=== PATIENT | female | born 1950 | race Caucasian/White ===

== ENCOUNTER → 2020-04-10 09:54 | Outpatient (CLI) | payer MEDICARE, SELFPAY ==
--- NOTE | ~2020-04-10 | MR_ITS ---
EXAMINATION: MR shoulder LT wo con DATE: 04/10/2020 11:02 INDICATION: Left shoulder pain. TECHNIQUE: Magnetic resonance imaging (MRI) of the left shoulder was performed without intravenous co ntrast. Sequences included axial PD-weighted FS FSE, coronal oblique PD-weighted FS FSE and T2-weight ed FS FSE, and sagittal oblique T2-weighted FS FSE and T1-weighted FSE. COMPARISON: None. FINDINGS: Coracoacromial arch: The acromion undersurface is curved in morphology with anterior hook (type III). There is mild acromi oclavicular joint osteoarthritis. There is mild subacromial/subdeltoid bursitis. Rotator cuff: There is mild supraspinatus and infraspinatus tendinopathy. Teres minor tendon is normal. There is mi ld subscapularis tendinopathy. No tear. There is no asymmetric fatty atrophy of the rotator cuff musc le bellies. Biceps tendon and glenoid labrum: Biceps tendon is in bicipital groove. There is moderate intra-articular biceps tendinopathy. There is a tear of the posterior superior labrum from 10:00 to 12:00 (SLAP tear). Fluid: There is a moderate-sized glenohumeral joint effusion. There is an 11 mm loose body. Bones/cartilage: There is full-thickness cartilage loss of central and posterior glenoid with subchondral cysts. There is partial-thickness cartilage loss of humeral head. IMPRESSION: 1. Mild rotator cuff tendinopathy. No tear. 2. Severe glenohumeral joint chondrosis. 3. Moderate-sized glenohumeral joint effusion with loose body. 4. Moderate intra-articular biceps tendinopathy. 5. Mild acromioclavicular joint osteoarthritis. Reviewed, dictated and finalized at location A.
== END ==
PROVIDERS: Visit Provider Nurse Practitioner Family
DX: M19.012 Primary osteoarthritis, left shoulder (principal)
CPT/HCPCS: 73221

== ENCOUNTER 2022-09-30 17:49 | Outpatient (NON) | payer MEDICARE, SELFPAY | END 2022-09-30 17:50 | disposition home or self-care (01) | LOC: ANHLAB 17:50 | PROVIDERS: PCP Family Medicine; Visit Provider Nurse Practitioner Family | DX: R39.9 Unspecified symptoms and signs involving the genitourinary system (principal) | CPT/HCPCS: 87086; 87088; 87147 ==

== ENCOUNTER 2022-10-14 21:41 | Outpatient (NON) | payer MEDICARE, SELFPAY | END 2022-10-14 21:42 | disposition home or self-care (01) | LOC: ANHLAB 21:43 | PROVIDERS: PCP Family Medicine; Visit Provider Nurse Practitioner Family | DX: R39.9 Unspecified symptoms and signs involving the genitourinary system (principal) | CPT/HCPCS: 87086; 87088 ==

== ENCOUNTER 2022-11-10 10:14 | Emergency (ER) | payer MEDICARE, SELFPAY ==
[2022-11-10 10:22] VITALS: BP 123/46; PULSE 61; RESP 16; TEMP 36.9; O2SAT 99
[2022-11-10 10:30] VITALS: BP 123/46; PULSE 61; RESP 16; TEMP 36.9; O2SAT 99
--- NOTE | 2022-11-10 10:31 | ED.URI ---
HPI - URI/Sore Throat General Chief Complaint: Upper Respiratory Infection Stated Complaint: Sinus Pain/Cough Time Seen by Provider: 11/10/22 10:25 Source: patient and RN notes reviewed History of Present Illness HPI Narrative: Patient is a 72-year-old female who presents to urgent care with complaints of sinus congestion, productive cough, pressure and drainage. Patient states that it started approximately 1 week ago. 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 Patient states that she was hoarse over the weekend which since has improved. Patient has been using Tessalon as prescribed for PCP on the however she was not seen in the office for evaluation. Patient states that yesterday she had some cold chills. Reports temperature of 99.9? F. Patient has been using cough drops but otherwise no other medication [id number]. No other acute complaints. Denies any shortness of breath or chest pain. No acute distress noted. Patient aware of the plan of care. Some parts of this dictation were generated by voice recognition software and may contain typographical and/or grammatical inaccuracies. Some parts of this dictation were generated by voice recognition software and may contain typographical and/or grammatical inaccuracies. Related Data Home Medications Medication Instructions Recorded Confirmed gabapentin 300 mg capsule 300 mg PO .1-3 02/16/21 11/10/22 bexarotene 75 mg capsule 4 mg PO DAILY 12/30/21 11/10/22 (Targretin) fenofibrate nanocrystallized 145 145 mg PO DAILY 12/31/21 11/10/22 mg tablet levothyroxine 125 mcg tablet 125 mcg PO DAILY 12/31/21 11/10/22 rosuvastatin 20 mg tablet 20 mg PO DAILY 12/31/21 11/10/22 omega 2-kvq-aix-fish oil 120 1 cap PO DAILY 09/30/22 11/10/22 mg-180 mg-500 mg capsule (Fish Oil) Allergies Allergy/AdvReac Type Severity Reaction Status Date / Time triamcinolone Allergy Severe itching Verified 11/10/22 10:18 latex Allergy Rash Verified 11/10/22 10:18 Review of Systems Review of Systems: CONSTITUTIONAL: Denies fever, chills, or sweats. EYES: Denies visual changes, redness, or discharge. ENT: Reports sinus congestion/pressure, postnasal drainage CARDIOVASCULAR: Denies chest pain, palpitations, or edema. RESPIRATORY: Reports a productive cough without dyspnea GASTROINTESTINAL: Denies abdominal pain, nausea, vomiting, or diarrhea. GENITOURINARY: Denies dysuria or hematuria. SKIN: Denies rash or itching. MUSCULOSKELETAL: Denies back pain, joint pain, or myalgia. NEUROLOGIC: Denies headache, numbness, or weakness. All other systems reviewed are negative, except as documented in HPI. [facility] Past Medical History Medical History Cutaneous T-cell lymphoma (~2020) Depression GERD without esophagitis History of shingles (~2020) Hx of renal calculi Hyperlipidemia Post herpetic neuralgia Shingles Surgical History Surgical History History of carpal tunnel release of both wrists Family History Family History Father Family history of cardiovascular disease Other Family history of Parkinson's disease Family history of dementia Social History Social History Smoking status: Never smoker Alcohol intake: never Substance use: never Substance use type: does not use Lack of Transportation: No Lack of Food: Never True Current Housing: I Have Housing Concerned About Future Housing: No Difficulty Paying Gas/Electric Bills: No Difficulty Paying for Meds: No Currently Unemployed: No Difficulty w/ Childcare or Family Care: No Living arrangements: with family Additional living arrangements comments: and son Occupation/Education: retired Gender identity (if verbalized by the patient): Female S
== END 2022-11-10 10:50 | disposition home or self-care (01) ==
PROVIDERS: Emergency Provider Nurse Practitioner Family
DX: J40 Bronchitis, not specified as acute or chronic (principal); K21.9 Gastro-esophageal reflux disease without esophagitis; E78.5 Hyperlipidemia, unspecified; Z85.72 Personal history of non-Hodgkin lymphomas
CPT/HCPCS: 99213; G0463

== ENCOUNTER 2025-08-26 15:05 | Outpatient (CLI) | payer MEDICARE, SELFPAY ==
--- OUTSIDE RECORDS SUMMARY | 2025-08-26 17:40 | XMS_ITS | Clinical Summary ---
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 Name Role Phone Rocky Nichols MD Primary Care Provider Social History Tobacco Use Types Packs/Day Years Used Date Smoking Tobacco: Never Assessed Comments Unknown Sex and Gender Information Value Date Recorded Sex Assigned at Not on file Legal Sex Female 11:52 PM CDT Gender Identity Not on file Sexual Orientation Not on file Plan of Treatment Health Maintenance Due Date Last Done Comments Hepatitis C Virus (HCV) Screening 1950 TdaP Immunization 1950 Cologuard 01/27/1996 Colonoscopy 01/27/1996 Colorectal Cancer Screening 01/27/1996 Immunochemical Fecal Occult Blood 01/27/1996 Pneumococcal Immunization (5 0+ years) (1 of 1 - PCV) 2001 Zoster Immunization (1 of 2) 2001 Influenza Immunization (#1) 2025 SARS-COV-2 Immunization ( season) 2025 Respiratory Syncytial Virus (RSV) Immunization (Adult) (1 - 1-dose 75+ series) 2026 Hepatitis B Immunization Aged Out No longer eligible based on patient's age to complete this topic Human Papillomavirus (HPV) Immunization Aged Out No longer eligible b ased on patient's age to complete this topic Meningococcal Immunization (ACWY) Aged Out No longer eligible based on patient's age to complete this topic Rotavirus Immunization Aged Out No lo nger eligible based on patient's age to complete this topic Care Teams [employer] Plant Operator Relationship Specialty Start Date End Date Rocky Nichols MD [address] [place] [address] PCP - General Family Medicine 04/20/16
[2025-08-26 19:30] LABS: Hematocrit 36.4 % (37.0-47.0); Hemoglobin 11.2 g/dL (12.0-15.0); Immature Granulocyte Percent A 0.6 % (0-0.5); Lymphocytes Absolute Auto 1.14 K/mm3 (0.9-3.2); Mean Corpuscular HGB Conc 30.8 g/dl (32-36); Mean Corpuscular Hemoglobin 31.5 pg (26-34); Mean Corpuscular Volume 102.2 fl (80-100); Nucleated Red Blood Cells Absolute Auto 0.000 K/mm3 (0.0-0.012); Nucleated Red Blood Cells Perc 0.0 % (0.0-0.2); Platelet Count Result 282 k/mm3 (150-375); Red Blood Count 3.56 M/mm3 (4.2-5.4); White Blood Count 9.5 K/mm3 (4.5-10.0)
[2025-08-26 20:08] LABS: Alanine Aminotransferase 27 U/L (6-35); Albumin Level 4.0 g/dL (3.5-5.1); Alkaline Phosphatase 76 U/L (38-126); Anion Gap 5 mmol/L (4-12); Aspartate Amino Transferase 28 U/L (14-36); Bilirubin,Total 0.6 mg/dL (0.2-1.3); Blood Urea Nitrogen 24 mg/dL (7-17); Calcium 9.2 mg/dL (8.4-10.2); Carbon Dioxide 31 mmol/L (22-30); Chloride 101 mmol/L (98-107); Estimated Glomerular Filt Rate 37; Glucose 114 mg/dL (65-110); Potassium 3.9 mmol/L (3.4-5.0); Sodium 137 mmol/L (137-145); Total Protein 7.2 g/dL (6.3-8.2)
[2025-08-26 20:24] LABS: Free T4 Free Thyroxine 0.95 ng/dL (0.78-2.19)
[2025-08-26 20:44] LABS: Thyroid Stimulating Hormone 5.120 uIU/mL (0.465-4.680); Total Triiodothyronine (T3) 1.07 NG/ML (0.82-1.58)
== END 2025-08-26 15:06 | disposition home or self-care (01) ==
PROVIDERS: PCP Family Medicine; Visit Provider Family Medicine
DX: R74.01 Elevation of levels of liver transaminase levels (principal); I10 Essential (primary) hypertension; E03.2 Hypothyroidism due to medicaments and other exogenous substances; D64.9 Anemia, unspecified
CPT/HCPCS: 36415; 80053; 84439; 84443; 84480; 85025